=== PATIENT | male | born 1980 | race Caucasian/White ===

== ENCOUNTER → 2022-01-28 09:46 | Outpatient (BNVA) | payer SELFPAY | PROVIDERS: Family Provider Family Medicine; Visit Provider Nurse Practitioner | DX: I10 Essential (primary) hypertension (principal) | CPT/HCPCS: 80053; 84443; 85025 ==

== ENCOUNTER → 2024-01-21 13:47 | Outpatient (BNVA) | payer OTHER, SELFPAY | PROVIDERS: Family Provider Family Medicine; Visit Provider Nurse Practitioner Family | DX: S89.91XA Unspecified injury of right lower leg, initial encounter (principal); W17.2XXA Fall into hole, initial encounter; Y93.89 Activity, other specified | CPT/HCPCS: 73562 ==

== ENCOUNTER → 2024-04-14 09:40 | Outpatient (BNVA) | payer OTHER, SELFPAY | PROVIDERS: Family Provider Family Medicine; Visit Provider Nurse Practitioner | DX: M25.571 Pain in right ankle and joints of right foot (principal); W19.XXXA Unspecified fall, initial encounter | CPT/HCPCS: 73610 ==

== ENCOUNTER 2024-06-04 06:00 | Outpatient (RCR) | payer OTHER, SELFPAY | END 2024-06-18 23:59 | disposition home or self-care (01) | LOC: GPT 06:00 | PROVIDERS: Family Provider Family Medicine; Visit Provider Physician Assistant | DX: S86.091D Other specified injury of right Achilles tendon, subsequent encounter (principal); X58.XXXD Exposure to other specified factors, subsequent encounter | CPT/HCPCS: 97110; 97140; 97161 ==

== ENCOUNTER 2024-06-19 06:00 | Outpatient (RCR) | payer OTHER, SELFPAY | END 2024-07-16 23:59 | disposition home or self-care (01) | LOC: GPT 06:00 | PROVIDERS: Family Provider Family Medicine; Visit Provider Physician Assistant | DX: S86.091D Other specified injury of right Achilles tendon, subsequent encounter (principal); X58.XXXD Exposure to other specified factors, subsequent encounter | CPT/HCPCS: 97035; 97110; 97112; 97140 ==